=== PATIENT | male | born 1965 | race Caucasian/White ===

== ENCOUNTER 2018-08-28 15:51 | Inpatient (IN) | payer BC ==
[~2018-08-28] VITALS: Ht 175.3 cm; Wt 84.8 kg
[2018-08-28] MEDS ORDERED: CELEXA40 MG PO (16:39)
[2018-08-28] MEDS ORDERED: IBUPROFEN 800800 M1 PO (16:39)
[2018-08-28] MEDS ORDERED: FLOMAX0.4 MG PO (16:40)
[2018-08-28 16:59] VITALS: BP 125/79
[2018-08-28 18:21] LABS: ABSOLUTE BASOPHILS 0.1 thou/uL (0.0-0.2); ABSOLUTE EOSINOPHILS 0.1 thou/uL (0.0-0.7); ABSOLUTE LYMPHOCYTES 1.4 thou/uL (0.8-5.3); ABSOLUTE NEUTROPHILS 7.5 thou/uL (1.6-8.1); BASOPHILS 0.6 %; HEMATOCRIT 39.1 % (42.0-52.0); HEMOGLOBIN 13.2 gm/dL (14.0-18.0); LYMPHOCYTES 13.8 %; MCH 29.5 pg (26.0-34.0); MCHC 33.8 g/dL (28.0-37.0); MCV 87.2 fL (80.0-100.0); MONOCYTES 10.2 %; MPV 8.1 fl. (7.2-11.1); NUCLEATED RBCS 0 /100WBC; PLATELET COUNT* 260 thou/uL (150-400); POLYS 74.4 %; RBC 4.48 mil/uL (4.50-6.00); RDW-CV 13.5 % (10.5-14.5); WBC 10.1 thou/uL (4.0-11.0)
[2018-08-28 18:30] LABS: ALBUMIN 3.1 g/dL (3.4-5.0); CALCIUM 8.3 mg/dL (8.5-10.1); CREATININE 0.9 mg/dL (0.6-1.3); MAGNESIUM 1.7 mg/dL (1.8-2.4); POTASSIUM 4.3 mmol/L (3.5-5.1); TOTAL BILIRUBIN 0.7 mg/dL (<0.1-1.0); TOTAL PROTEIN 6.5 g/dL (6.4-8.2)
--- NOTE | 2018-08-28 19:44 | NUR ---
PATIENT ADMITTED TO ROOM 304 A DIRECT ADMIT AT 1610. PATIENT'S ADMISSION PROCESS COMPELTED. IV STARTED, IV FLUIDS AND ANTIBIOTICS INFUSED ORDERED. RADIOLOGY TECHNICIAN IN PLACE, TRACING NSR. PATIENT GIVEN IBUPROFEN FOR PAIN AND LOW GRADE TEMP. PATIENT STATES FEELING BETTER AFTER RECEIVING MEDS. PATIENT SEEN BY UROLOGY NURSE PRACTITIONER. PATIENT TOLERATING DIET. VOIDING PER URINAL. URINE SENT PER ORDERS. AT BEDSIDE THIS AFTERNOON. HOURLY ROUNDING COMPLETED. CALL LIGHT WITHIN REACH. WILL CONTINUE WITH PLAN OF CARE.
[2018-08-28 20:00] VITALS: BP 102/62
[2018-08-28 23:57] VITALS: BP 100/60
[2018-08-29 04:06] VITALS: BP 97/65
--- NOTE | 2018-08-29 05:07 | NUR ---
PATIENT SLEPT WELL DURING THIS SHIFT. PT VOIDS YELLOW URINE PER URINAL. PT REQUESTED TYLENOL AT HS. PT WITH FLUIDS INFUSING PER DR ORDER. PT SAID HE FEELS BETTER NOW THAN WHEN HE FIRST CAME IN. FREQUENTLY USED ITEMS AND CALL LIGHT WITHIN REACH. SIDERAILS UPX2. WILL CONTINUE TO MONITOR.
[2018-08-29 05:16] LABS: HEMOGLOBIN 13.3 gm/dL (14.0-18.0); MCH 29.1 pg (26.0-34.0); MCHC 33.4 g/dL (28.0-37.0); MCV 87.1 fL (80.0-100.0); MPV 8.2 fl. (7.2-11.1); RBC 4.59 mil/uL (4.50-6.00); RDW-CV 13.5 % (10.5-14.5); WBC 10.5 thou/uL (4.0-11.0)
[2018-08-29 05:25] LABS: APTT 31.4 Seconds (25.0-31.3); CALCIUM 8.4 mg/dL (8.5-10.1); CREATININE 0.9 mg/dL (0.6-1.3); MAGNESIUM 1.7 mg/dL (1.8-2.4); POTASSIUM 4.6 mmol/L (3.5-5.1); PROTIME 10.5 Seconds (9.20-11.50)
[2018-08-29 07:30] VITALS: BP 104/70
[2018-08-29 08:21] LABS: URINE BILIRUBIN NEGATIVE (Negative); URINE BLOOD 1+ (Negative); URINE CLARITY CLEAR; URINE COLOR YELLOW; URINE GLUCOSE-RANDOM NEGATIVE (Negative); URINE KETONES NEGATIVE (Negative); URINE LEUKOCYTES-REFLEX NEGATIVE (Negative); URINE NITRITE-REFLEX NEGATIVE (Negative); URINE PROTEIN NEGATIVE (Negative); URINE UROBILINOGEN 0.2 E.U./dl (0.2-1.0)
[2018-08-29 08:23] LABS: BACTERIA-REFLEX 1-9 Few /HPF (None Seen); CASTS None Seen /LPF (None Seen); CRYSTALS None Seen /LPF (None Seen); MUCUS None Seen strn/LPF (None Seen); SQUAMOUS 0-3 Few /LPF (0-3); URINE RBC 3-10 Few /HPF (0-2); URINE WBC-REFLEX 0-5 Rare /HPF (0-5)
[2018-08-29 12:47] VITALS: BP 106/59
[2018-08-29 15:00] VITALS: BP 129/65
[2018-08-29 16:52] LABS: ABSOLUTE BASOPHILS 0.1 thou/uL (0.0-0.2); ABSOLUTE EOSINOPHILS 0.2 thou/uL (0.0-0.7); ABSOLUTE LYMPHOCYTES 1.7 thou/uL (0.8-5.3); ABSOLUTE MONOCYTES 0.9 thou/uL (0.0-1.2); ABSOLUTE NEUTROPHILS 4.9 thou/uL (1.6-8.1); BASOPHILS 0.9 %; EOSINOPHILS 2.3 %; HEMATOCRIT 37.3 % (42.0-52.0); HEMOGLOBIN 12.8 gm/dL (14.0-18.0); LYMPHOCYTES 21.5 %; MCH 29.3 pg (26.0-34.0); MCHC 34.3 g/dL (28.0-37.0); MCV 85.7 fL (80.0-100.0); MONOCYTES 11.3 %; MPV 7.4 fl. (7.2-11.1); NUCLEATED RBCS 0 /100WBC; PLATELET COUNT* 285 thou/uL (150-400); RBC 4.35 mil/uL (4.50-6.00); RDW-CV 13.1 % (10.5-14.5); WBC 7.7 thou/uL (4.0-11.0)
--- NOTE | 2018-08-29 18:37 | NUR ---
PATIENT HAS BEEN A/O X 4 THIS SHIFT. TRACING NSR ON CHANCELLOR. HAS HAD LOW GRADE TEMPS THIS SHIFT. MEDICATED WITH TYLENOL AND IBUPROFEN THIS SHIFT. STARTED ON PYRIDIUM THIS EVENING FOR PAINFUL URINATION. PATIENT UP AD SIRI IN ROOM. PATIENT CONTINUES ON IVF AND ANTIBIOTICS. UPDATED ON PLAN OF CARE THROUGHOUT THE SHIFT. HOURLY ROUNDING COMPLETED. CALL LIGHT WITHIN REACH. WILL CONTINUE WITH PLAN OF CARE.
[2018-08-29 19:40] VITALS: BP 103/63
[2018-08-29 23:58] VITALS: BP 121/72
[2018-08-30 03:44] VITALS: BP 115/72
[2018-08-30 04:04] LABS: CALCIUM 8.4 mg/dL (8.5-10.1); CREATININE 0.7 mg/dL (0.6-1.3); MAGNESIUM 1.7 mg/dL (1.8-2.4); POTASSIUM 4.4 mmol/L (3.5-5.1)
--- NOTE | 2018-08-30 05:32 | NUR ---
PT SLEPT MOST OF SHIFT. ASSESSMENT DOCUMENTED. MEDS GIVEN PER E-MAR. IV PATENT, FLUIDS FINISHED INFUSING. TYLENOL GIVEN PER E-MAR. WILL CONTINUE WITH PLAN OF CARE.
[2018-08-30 07:40] VITALS: BP 117/50
--- NOTE | 2018-08-30 16:27 | NUR ---
SW met with pt to complete initial assessment, introduce self, and SW role. Pt alert, oriented, pleasant. [place] . Pt independent with ADLs and mobility. Pt does not have any HH services or DME and anticipates not having any dc needs. Pt expects to dc home tomorrow, Monday. SW to continue to follow.
[2018-08-30 16:36] VITALS: BP 100/57
--- NOTE | 2018-08-30 17:19 | NUR ---
PATIENT IS ALERT AND ORIENTED TODAY PLEASANT BUT FLAT AFFECT. COMPLAINS OF CHRONIC PAIN IN CHEST AND RIBS FROM BEING CODING, MOANS AND CRIES OUT WITH ANY MOVEMENT. VITAL SIGNS STABLE ON 2 LITERS OF OXYGEN THROUGH NASAL CANNULA. UP IN THE CHAIR MOST OF THE DAY. APPETITE IS OKAY MOST OF THE TIME. PERITONEAL DIALYSIS DONE AT NIGHT. CALL LIGHT IS IN REACH, WILL CONTINUE TO MONITOR.
--- NOTE | 2018-08-30 17:33 | NUR ---
PATIENT IS ALERT AND ORINETED TODAY, VERY PLEASANT TODAY. UP AD SIRI IN ROOM, APPETITE IS GOOD. NO COMPLAINTS OF PAIN TODAY, URINE IS ORANGE FROM THE MEDICATION. VITAL SIGNS STABLE ON ROOM AIR. SIMUS RHYTHYM ON THE MONITOR. CALL LIGHT IS IN REACH, CALLS FOR HELP IF NEEDED.
[2018-08-30 19:40] VITALS: BP 120/79
[2018-08-31 00:05] VITALS: BP 126/72
[2018-08-31 03:20] VITALS: BP 101/64
--- NOTE | 2018-08-31 05:55 | NUR ---
PT SLEPT MOST OF SHIFT. ASSESSMENT DOCUMENTED. MEDS GIVEN PER E-MAR. IV PATENT. NO REPORTS OF PAIN THIS SHIFT. TYLENOL GIVEN ONCE THIS SHIFT FOR TEMP OF 99.1 PER PT REQUEST. WILL CONTINUE WITH PLAN OF CARE.
[2018-08-31] MEDS ORDERED: PHENAZOPYRIDIN100 M1 PO (07:39)
[2018-08-31] MEDS ORDERED: HYDROCODON-ACE1 EAC7 PO (07:39)
[2018-08-31] MEDS ORDERED: CEFUROXIME500 MG PO (07:39)
[2018-08-31] MEDS ORDERED: ACIDOPHILUS1 EAC4 PO (07:39)
[2018-08-31 08:00] VITALS: BP 99/74
[2018-08-31 10:10] VITALS: BP 99/74
--- NOTE | 2018-08-31 13:15 | NUR ---
DISCHARGE NOTE - PT DC'ED AT THIS TIME. REVIEWED DISCHARGE PAPERS WITH PT. NO QUESTIONS. ALL BELONGINGS SENT WITH PT. IV REMOVED.
== END 2018-08-31 13:15 | disposition home or self-care (01) | DRG 872 ==
LOC: M.3W 15:51
PROVIDERS: ADMIT Internal Medicine
DX: A41.9 Sepsis, unspecified organism (principal); N41.0 Acute prostatitis; J45.909 Unspecified asthma, uncomplicated; K21.9 Gastro-esophageal reflux disease without esophagitis; B96.89 Other specified bacterial agents as the cause of diseases classified elsewhere; F32.9 Major depressive disorder, single episode, unspecified; Z90.49 Acquired absence of other specified parts of digestive tract; Z79.899 Other long term (current) drug therapy; Z80.42 Family history of malignant neoplasm of prostate